=== PATIENT | female | born 1980 | race Caucasian/White ===

== ENCOUNTER 2017-07-23 12:35 | Emergency (ER) | payer OTHER ==
[~2017-07-23] VITALS: Ht 152.4 cm; Wt 56.7 kg
[~2017-07-23 12:35] MED LIST: ALBU90OI INH; AMOX500 PO; ASCO1ER; AZIT500 PO; BCP; BENADRYL25 MG PO; BISA5EC PO; Bactrim Ds Tab1 EACH PO; CEPH500 PO; CLIN300 PO; Citrate Of Mag300 ML PO; DIPH50 PO; DOXY100; FAMO20 PO; HYDACE5 PO; HYDHOMSY PO; HYDR1TAB94 PO; Hair, Skin & N1 EACH PO; IBUP200; Kristalose20 GM PO; LAVAP17G; LORA10 PO; METR500 PO; MULVITMINE; MULVITMINE PO; MUPI2TC TOP; NEOPOLHYD OP; Naprosyn500 MG PO; Norco 5-325 Ta1 EACH PO; OMEP40CA12 PO; PENVK500 PO; PHENA200 PO; PSYL5.85P; Prednisone20 MG PO; Pyridium200 MG PO; RXHYDACE PO; RXPENVK250 PO; RXTRAM50 PO; SERT25; SULTRIDS PO; TRAACE PO; TRAM50 PO; TRIA80TC TOP; Valium5 MG PO; [UNRECOGNIZED DRUG - OTHER] PO
[2017-07-23] MEDS ORDERED: BCP (12:41)
[2017-07-23] MEDS ORDERED: Ultram50 MG PO (13:41)
[2017-07-23] MEDS ORDERED: Veetids 500500 MG PO (13:41)
== END 2017-07-23 13:45 | disposition home or self-care (01) ==
LOC: ER 12:35
DX: K08.89 Other specified disorders of teeth and supporting structures (principal); Z88.5 Allergy status to narcotic agent; Z88.8 Allergy status to other drugs, medicaments and biological substances; Z87.891 Personal history of nicotine dependence
CPT/HCPCS: 99283

== ENCOUNTER 2018-03-01 16:51 | Emergency (ER) | payer OTHER ==
[~2018-03-01] VITALS: Ht 152.4 cm; Wt 61.2 kg
[~2018-03-01 16:51] MED LIST changes: +Ultram50 MG PO; +Veetids 500500 MG PO
[2018-03-01] MEDS ORDERED: Naprosyn500 MG PO (17:24)
[2018-03-01] MEDS ORDERED: CYCL10 PO (17:24)
== END 2018-03-01 17:34 | disposition home or self-care (01) ==
LOC: ER 16:51
DX: S16.1XXA Strain of muscle, fascia and tendon at neck level, initial encounter (principal); F17.200 Nicotine dependence, unspecified, uncomplicated; Z88.8 Allergy status to other drugs, medicaments and biological substances; Z88.5 Allergy status to narcotic agent; X58.XXXA Exposure to other specified factors, initial encounter
CPT/HCPCS: 96372; 99282; J1885

== ENCOUNTER 2020-09-25 11:47 | Emergency (ER) | payer OTHER ==
[~2020-09-25] VITALS: Ht 165.1 cm; Wt 63.5 kg
[~2020-09-25 11:47] MED LIST changes: +CYCL10 PO
[2020-09-25 12:17] LABS: BASOPHILS ABSOLUTE AUTO 0.03 K/mm3 (0.00-0.23); BASOPHILS PERCENT AUTO 0 % (0-2); EOSINOPHILS ABSOLUTE AUTO 0.03 K/mm3 (0.00-0.68); EOSINOPHILS PERCENT AUTO 0 % (0-6); Hematocrit 43.7 % (33.0-51.0); Hemoglobin 14.5 g/dL (11.5-16.0); IMMATURE GRAN ABSOLUTE AUTO 0.02 K/mm3 (0.00-0.10); IMMATURE GRAN PERCENT AUTO 0 % (0-1); LYMPHOCYTES ABSOLUTE AUTO 0.83 K/mm3 (0.84-5.20); LYMPHOCYTES PERCENT AUTO 10 % (21-46); MONOCYTES PERCENT AUTO 5 % (4-13); Mean Corpuscular HGB 29.4 pg (26.0-34.0); Mean Corpuscular HGB Conc 33.2 g/dL (31.5-36.5); Mean Corpuscular Volume 89 fL (80-100); Mean Platelet Volume 11.3 fL (9.1-12.4); NEUTROPHILS ABSOLUTE AUTO 7.34 K/mm3 (1.96-9.15); NEUTROPHILS PERCENT AUTO 85 % (41-73); Platelet Count 206 K/mm3 (150-400); RDW Coefficient Variation 12.2 % (11.7-14.2); RDW Standard Deviation 39.7 fL (35.1-46.3); Red Blood Cell Count 4.93 M/mm3 (3.80-5.20); White Blood Cell Count 8.65 K/mm3 (4.00-11.30)
[2020-09-25 12:39] LABS: Alanine Aminotransfer (ALT/SGP 26 U/L (12-78); Albumin, Blood 3.8 g/dL (3.4-5.0); Albumin/Globulin Ratio 1.1 (0.8-1.8); Alk Phos 101 U/L (50-136); Anion Gap 6 mmol/L (6-16); Aspartate Aminotrans (AST/SGOT 17 U/L (12-37); Bilirubin, Total 0.3 mg/dL (0.1-1.0); Blood Urea Nitrogen 12 mg/dL (8-24); Bun/Creatinine Ratio 14.7 (12.0-20.0); CO2, Blood 26 mmol/L (21-32); Calcium, Blood 8.7 mg/dL (8.5-10.1); Chloride, Blood 110 mmol/L (98-108); Creatinine, Blood 0.81 mg/dL (0.40-1.00); Globulin, Blood 3.5 g/dL (2.2-4.0); Glomerular Filtration Rate >60 (60-); Glucose, Blood 105 mg/dL (70-99); Potassium, Blood 4.1 mmol/L (3.5-5.5); Sodium, Blood 142 mmol/L (136-145); Total Protein, Blood 7.3 g/dL (6.4-8.2)
[2020-09-25] MEDS ORDERED: CYMBALTA60 M1 PO (14:21)
[2020-09-25] MEDS ORDERED: BUPROPION XL150 M1 PO (14:22)
[2020-09-25] MEDS ORDERED: HYDPAM25 PO (14:22)
[2020-09-25] MEDS ORDERED: ONDA4ODT MM (15:48)
[2021-01-05] MEDS ORDERED: Norco 5-325 Ta1 EACH PO (10:53)
== END 2020-09-25 16:31 | disposition home or self-care (01) ==
LOC: ER 11:47
PROVIDERS: Emergency Medicine
DX: R11.2 Nausea with vomiting, unspecified (principal); K21.9 Gastro-esophageal reflux disease without esophagitis; Z87.891 Personal history of nicotine dependence
CPT/HCPCS: 36415; 80053; 83690; 85025; 96374; 96376; 99283-25; J2405; J7030

== ENCOUNTER 2021-01-03 20:09 | Emergency (ER) | payer OTHER ==
[~2021-01-03] VITALS: Ht 165.1 cm; Wt 81.7 kg
[~2021-01-03 20:09] MED LIST changes: +BUPROPION XL150 M1 PO; +CYMBALTA60 M1 PO; +HYDPAM25 PO; +ONDA4ODT MM
[2021-01-03] MEDS ORDERED: Norco 5-325 Ta1 EACH PO (22:42)
[2021-01-05] MEDS ORDERED: Norco 5-325 Ta1 EACH PO (10:53)
== END 2021-01-03 22:57 | disposition home or self-care (01) ==
LOC: ER 20:09
DX: S06.9X9A Unspecified intracranial injury with loss of consciousness of unspecified duration, initial encounter (principal); S16.1XXA Strain of muscle, fascia and tendon at neck level, initial encounter; K21.9 Gastro-esophageal reflux disease without esophagitis; Z79.899 Other long term (current) drug therapy; Z87.891 Personal history of nicotine dependence
CPT/HCPCS: 70450; 72125; 99283-25; A9270

== ENCOUNTER 2021-01-17 15:00 | Emergency (ER) | payer OTHER ==
[~2021-01-17] VITALS: Ht 152.4 cm; Wt 72.6 kg
[2021-01-17] MEDS ORDERED: HYDR1TAB94 PO (16:48)
[2021-01-17] MEDS ORDERED: PROC25S PR (16:48)
[2021-01-17] MEDS ORDERED: MECL25 PO (16:48)
== END 2021-01-17 16:56 | disposition home or self-care (01) ==
LOC: ER 15:00
DX: S06.0X9A Concussion with loss of consciousness of unspecified duration, initial encounter (principal); K21.9 Gastro-esophageal reflux disease without esophagitis; Z88.6 Allergy status to analgesic agent; Z88.5 Allergy status to narcotic agent; Z79.899 Other long term (current) drug therapy; Z87.891 Personal history of nicotine dependence; W20.8XXA Other cause of strike by thrown, projected or falling object, initial encounter
CPT/HCPCS: 70450; 99283-25

== ENCOUNTER → 2022-05-12 | Outpatient (CLI) | payer OTHER ==
[~2022-05-12] MED LIST changes: +MECL25 PO; +PROC25S PR
== END | disposition home or self-care (01) ==
LOC: LAB SHORT 13:36 → LAB 13:36
DX: R30.0 Dysuria (principal)
CPT/HCPCS: 87086

== ENCOUNTER → 2022-05-28 | Outpatient (CLI) | payer OTHER | END | disposition home or self-care (01) | LOC: LAB SHORT 14:33 → LAB 14:33 | DX: Z34.90 Encounter for supervision of normal pregnancy, unspecified, unspecified trimester (principal) | CPT/HCPCS: 84702 ==

== ENCOUNTER 2023-01-17 05:36 | Inpatient (IN) | payer OTHER ==
[2023-01-17] VITALS (19 sets, daily range): BP systolic 82–129; BP diastolic 51–75
[~2023-01-17] VITALS: Ht 154.9 cm; Wt 97.7 kg
[2023-01-17 06:11] LABS: BASOPHILS ABSOLUTE AUTO 0.02 K/mm3 (0.00-0.23); BASOPHILS PERCENT AUTO 0 % (0-2); EOSINOPHILS ABSOLUTE AUTO 0.04 K/mm3 (0.00-0.68); EOSINOPHILS PERCENT AUTO 1 % (0-6); Hematocrit 31.8 % (33.0-51.0); Hemoglobin 10.4 g/dL (11.5-16.0); IMMATURE GRAN ABSOLUTE AUTO 0.03 K/mm3 (0.00-0.10); IMMATURE GRAN PERCENT AUTO 0 % (0-1); LYMPHOCYTES ABSOLUTE AUTO 1.02 K/mm3 (0.84-5.20); LYMPHOCYTES PERCENT AUTO 15 % (21-46); MONOCYTES ABSOLUTE AUTO 0.46 K/mm3 (0.16-1.47); MONOCYTES PERCENT AUTO 7 % (4-13); Mean Corpuscular HGB 27.3 pg (26.0-34.0); Mean Corpuscular HGB Conc 32.7 g/dL (31.5-36.5); Mean Corpuscular Volume 84 fL (80-100); NEUTROPHILS PERCENT AUTO 78 % (41-73); Platelet Count 139 K/mm3 (150-400); RDW Coefficient Variation 13.9 % (11.7-14.2); Red Blood Cell Count 3.81 M/mm3 (3.80-5.20); White Blood Cell Count 6.97 K/mm3 (4.00-11.30)
[2023-01-17 06:21] LABS: Mean Platelet Volume 13.7 fL (9.1-12.4)
[2023-01-17] MEDS ORDERED: PRENATAL TABLE1 EAC2 PO (06:30)
[2023-01-17] MEDS ORDERED: FAMO20 PO (06:31)
--- NOTE | 2023-01-17 08:45 | NUR ---
01/17/23 0845 MAYCOL MINAYA VIABLE BABY GIRL BORN VIA SECTION AT 0834. 'S 9.
[2023-01-17 08:48] LABS: PCO2 Cord - Arterial 61.2 mmHg (40-50); PO2 Cord - Arterial 15.4 mmHg (16-20); pH Cord - Arterial 7.25 (7.28-7.35)
[2023-01-17 08:50] LABS: PCO2 Cord - Venous 54.7 mmHg (40-50); PO2 Cord - Venous 19.4 mmHg (28-32)
[2023-01-18] VITALS (15 sets, daily range): BP systolic 93–120; BP diastolic 51–67
[2023-01-18 05:59] LABS: BASOPHILS ABSOLUTE AUTO 0.02 K/mm3 (0.00-0.23); BASOPHILS PERCENT AUTO 0 % (0-2); EOSINOPHILS ABSOLUTE AUTO 0.01 K/mm3 (0.00-0.68); EOSINOPHILS PERCENT AUTO 0 % (0-6); Hematocrit 26.7 % (33.0-51.0); Hemoglobin 8.8 g/dL (11.5-16.0); IMMATURE GRAN ABSOLUTE AUTO 0.03 K/mm3 (0.00-0.10); IMMATURE GRAN PERCENT AUTO 0 % (0-1); LYMPHOCYTES ABSOLUTE AUTO 1.08 K/mm3 (0.84-5.20); LYMPHOCYTES PERCENT AUTO 9 % (21-46); MONOCYTES ABSOLUTE AUTO 0.82 K/mm3 (0.16-1.47); MONOCYTES PERCENT AUTO 7 % (4-13); Mean Corpuscular HGB 27.5 pg (26.0-34.0); Mean Corpuscular Volume 83 fL (80-100); NEUTROPHILS ABSOLUTE AUTO 9.93 K/mm3 (1.96-9.15); NEUTROPHILS PERCENT AUTO 83 % (41-73); Platelet Count 104 K/mm3 (150-400); RDW Coefficient Variation 13.7 % (11.7-14.2); RDW Standard Deviation 40.9 fL (35.1-46.3); White Blood Cell Count 11.89 K/mm3 (4.00-11.30)
--- NOTE | 2023-01-18 12:57 | NUR ---
PT C/O SEVERE RUQ PAIN. DR. ZUNIGA CAME IN AND ASSESSED PT AND HER PAIN. DR. ZUNIGA ORDERED TORODOL AND DILAUDID. I PLACED ANOTHER IV IN HER LT AC BECAUSE HER OTHER ONE BLEW. ADVISED PT TO GO FOR A WALK AND USE IV TORODOL. PT ADVISED TO LET NURSE KNOW IF PAIN DOES NOT IMPROVE. WILL CONTINUE TO MONITOR.
--- NOTE | 2023-01-18 13:00 | NUR ---
PT HAVING 9/10 RUQ PAIN. MEDICATED PER EMAR. WONDERLY TOLD AND WENT TO PT'S ROOM TO EVALUATE HER. ORDERED TORODOL AND DILAUDID WITH LABS WELL. WILL CONTINUE TO EVALUATE
[2023-01-18 13:25] LABS: Platelet Count 132 K/mm3 (150-400)
[2023-01-18 13:30] LABS: Mean Platelet Volume 13.7 fL (9.1-12.4)
[2023-01-18 14:05] LABS: Amylase, Blood 45 U/L (25-115)
[2023-01-18 14:07] LABS: Alanine Aminotransfer (ALT/SGP 27 U/L (12-78); Albumin, Blood 2.3 g/dL (3.4-5.0); Albumin/Globulin Ratio 0.7 (0.8-1.8); Alk Phos 149 U/L (50-136); Anion Gap 7 mmol/L (6-16); Aspartate Aminotrans (AST/SGOT 39 U/L (12-37); Bilirubin, Total <0.1 mg/dL (0.1-1.0); Blood Urea Nitrogen 12 mg/dL (8-24); CO2, Blood 23 mmol/L (21-32); Chloride, Blood 109 mmol/L (98-108); Globulin, Blood 3.4 g/dL (2.2-4.0); Glomerular Filtration Rate 95 (60-); Glucose, Blood 95 mg/dL (70-99); Sodium, Blood 139 mmol/L (136-145); Total Protein, Blood 5.7 g/dL (6.4-8.2)
--- NOTE | 2023-01-18 18:06 | NUR ---
PT STILL HAVING SEVERE RUQ PAIN. DR. ZUNIGA CALLED AND ADVISED PT WAS HAVING SEVERE PAIN. CONTACTED AND ORDERED AT CT ABDO/ PELVIS WITH CONTRAST.
--- NOTE | 2023-01-18 18:30 | NUR ---
PT OFF TO CT NOW. MEDICATED PER EMAR BEFORE SHE LEFT FOR SCAN
--- NOTE | 2023-01-18 21:22 | NUR ---
DR ZUNIGA INTO PTS ROOM TO DISCUSS CT FINDINGS WITH PT AND FOB. CT SHOWED NOTHING ACUTE GOING ON, JUST SOME MILD GAS. POC TO INCREASE AMBULATION AND PT TO TAKE A WALK BEFORE BED
--- NOTE | 2023-01-18 22:34 | NUR ---
Pt sitting in bed, No requests at this time.
--- NOTE | 2023-01-19 02:52 | NUR ---
RN DISCUSSED WITH PT ABOUT THE DISCUSSION THIS RN HAD WITH DR ZUNIGA REGARDING BREAK THROUGH PAIN MEDICATION. NEW ORDERS WERE GIVEN TO INCREASE PERCOCET TO 7.5MG, TAKE A BOWEL STIMULANT AND A MINAYA FLUSH PRN AND FOR PT TO AMBULATE THE EAST WAY. PT RECEPTIVE TO THIS, PT DECLINED THE FLUSH RIGHT NOW BUT MAY BE UP FOR IT IN THE AM. PT GOOD WITH TAKING MILK OF MAG AND AMBULATING IN THE EAST WAY
[2023-01-19 04:12] VITALS: BP 100/55
[2023-01-19 05:53] LABS: Hematocrit 27.8 % (33.0-51.0); Hemoglobin 9.1 g/dL (11.5-16.0); Mean Corpuscular HGB 27.5 pg (26.0-34.0); Mean Corpuscular HGB Conc 32.7 g/dL (31.5-36.5); Mean Corpuscular Volume 84 fL (80-100); Platelet Count 122 K/mm3 (150-400); RDW Coefficient Variation 14.1 % (11.7-14.2); RDW Standard Deviation 43.2 fL (35.1-46.3); Red Blood Cell Count 3.31 M/mm3 (3.80-5.20)
[2023-01-19 07:34] VITALS: BP 91/55
--- NOTE | 2023-01-19 07:51 | NUR ---
pt is doing well this morning, talked about getting paper work done for going home today, pt reports dr wonderly wanted to keep her until tomorrow, but the pt reported she would like to go home today. encouraged pt to ambulate in usllivan, pt dressing was still on, removed dressing, incision c/d/i, pt reports passing gas. pt encoruaged to call if needs anything
--- NOTE | 2023-01-19 07:58 | NUR ---
pt verblizes [facility] a no smoking campus and that there is no smoking in the rooms: no cig, no vap, no thcsmoking, pt and fob verbalized understanding
[2023-01-19 11:43] VITALS: BP 115/64
[2023-01-19] MEDS ORDERED: IBUP800 PO ×2 (12:43→16:07)
[2023-01-19] MEDS ORDERED: Percocet 5-3251 EACH PO (16:06)
[2023-01-19] MEDS ORDERED: CYCL10 PO (16:08)
--- NOTE | 2023-01-19 16:49 | NUR ---
READY TO DC HOME, GETTING SCRIPTS FILLED, TO LET RN KNOW WHEN READY, DC INSTRUCTIONS GONE OVER WITH PT AND SO DECLINES ANY QUESTIONS, PT WAS FALLING ASLEEP THRU THE DC INSTRUCTIONS
[2023-01-19 18:03] VITALS: BP 141/75
== END 2023-01-19 18:15 | disposition home or self-care (01) | DRG 787 ==
LOC: BC 05:36 → PRE IP 08:00 → BC 23:26
PROVIDERS: Advanced Practice Midwife; ADMIT Obstetrics & Gynecology
PROC: 4A033R1 Measurement of Arterial Saturation, Peripheral, Percutaneous Approach (ICD-10-PCS; 2023-01-17)
PROC: 30233N1 Transfusion of Nonautologous Red Blood Cells into Peripheral Vein, Percutaneous Approach (ICD-10-PCS; 2023-01-17)
PROC: 10D00Z1 Extraction of Products of Conception, Low, Open Approach (ICD-10-PCS; principal; 2023-01-17 08:00)
DX: O34.211 Maternal care for low transverse scar from previous cesarean delivery (principal); O99.12 Other diseases of the blood and blood-forming organs and certain disorders involving the immune mechanism complicating childbirth; O99.354 Diseases of the nervous system complicating childbirth; Z67.40 Type O blood, Rh positive; G43.909 Migraine, unspecified, not intractable, without status migrainosus; O90.81 Anemia of the puerperium; O09.513 Supervision of elderly primigravida, third trimester; Z90.49 Acquired absence of other specified parts of digestive tract; Z98.818 Other dental procedure status; Z88.6 Allergy status to analgesic agent; Z91.048 Other nonmedicinal substance allergy status; Z79.899 Other long term (current) drug therapy; Z88.5 Allergy status to narcotic agent; Z37.0 Single live birth; Z3A.39 39 weeks gestation of pregnancy
CPT/HCPCS: 36415; 74177; 80053; 82150; 82803; 83690; 85025; 85027; 85049; 86850; 86900; 86901; 86923; A9270; J0690; J1100; J1170; J1885; J2371; J2405; J2590; J2765; J3010; J7120; Q9967

== ENCOUNTER → 2024-06-04 | Outpatient (CLI) | payer OTHER ==
[~2024-06-04] MED LIST changes: +IBUP800 PO; +PRENATAL TABLE1 EAC2 PO; +Percocet 5-3251 EACH PO
[2024-06-04 15:31] LABS: Bacterial Vaginosis PCR Negative (NEGATIVE); Candida Group, PCR NOT DETECTED (NOT DETECT); Candida glabrata-krusei, PCR NOT DETECTED (NOT DETECT)
== END ==
LOC: LAB 13:08 → LAB SHORT 13:08
PROVIDERS: Physician Assistant Surgical
DX: N89.8 Other specified noninflammatory disorders of vagina (principal)
CPT/HCPCS: 87481; 87661; 87801

== ENCOUNTER 2024-11-18 15:36 | Emergency (ER) | payer OTHER ==
[~2024-11-18] VITALS: Ht 152.4 cm; Wt 77.1 kg
[2024-11-18 15:46] VITALS: BP 150/100
[2024-11-18] MEDS ORDERED: Lidocaine 2% Viscous Soln 15 ML UDC PO ONE (15:55)
[2024-11-18] MEDS ORDERED: Mag Hydrox/AL Hydrox/Simeth 30 ML UDC PO ONE (15:55)
[2024-11-18 16:33] LABS: BASOPHILS ABSOLUTE AUTO 0.03 K/mm3 (0.00-0.23); BASOPHILS PERCENT AUTO 0 % (0-2); EOSINOPHILS ABSOLUTE AUTO 0.06 K/mm3 (0.00-0.68); EOSINOPHILS PERCENT AUTO 1 % (0-6); Hematocrit 44.6 % (33.0-51.0); Hemoglobin 15.4 g/dL (11.5-16.0); IMMATURE GRAN ABSOLUTE AUTO 0.04 K/mm3 (0.00-0.10); IMMATURE GRAN PERCENT AUTO 0 % (0-1); LYMPHOCYTES ABSOLUTE AUTO 0.86 K/mm3 (0.84-5.20); LYMPHOCYTES PERCENT AUTO 8 % (21-46); MONOCYTES PERCENT AUTO 5 % (4-13); Mean Corpuscular HGB 29.4 pg (26.0-34.0); Mean Corpuscular HGB Conc 34.5 g/dL (31.5-36.5); Mean Corpuscular Volume 85 fL (80-100); Mean Platelet Volume 11.2 fL (9.1-12.4); NEUTROPHILS ABSOLUTE AUTO 9.59 K/mm3 (1.96-9.15); NEUTROPHILS PERCENT AUTO 86 % (41-73); Platelet Count 213 K/mm3 (150-400); RDW Coefficient Variation 11.8 % (11.7-14.2); RDW Standard Deviation 36.1 fL (35.1-46.3); Red Blood Cell Count 5.24 M/mm3 (3.80-5.20); White Blood Cell Count 11.18 K/mm3 (4.00-11.30)
[2024-11-18 17:04] LABS: Albumin/Globulin Ratio 1.2 (0.8-1.8); Bilirubin, Total 0.5 mg/dL (0.1-1.0); Bun/Creatinine Ratio 21.5 (12.0-20.0); Calcium, Blood 9.1 mg/dL (8.5-10.1); Creatinine, Blood 0.56 mg/dL (0.40-1.00); Globulin, Blood 3.3 g/dL (2.2-4.0); Potassium, Blood 3.7 mmol/L (3.5-5.5); Total Protein, Blood 7.3 g/dL (6.4-8.2)
[2024-11-18] MEDS ORDERED: Pepcid40 MG PO (18:27)
[2024-11-18] MEDS ORDERED: Famotidine 20 MG Tab PO ONE (18:30)
== END 2024-11-18 18:45 | disposition home or self-care (01) ==
LOC: ER 15:36
PROVIDERS: Emergency Medicine
DX: R10.13 Epigastric pain (principal); Z88.5 Allergy status to narcotic agent; Z88.8 Allergy status to other drugs, medicaments and biological substances; Z91.09 Other allergy status, other than to drugs and biological substances; Z79.899 Other long term (current) drug therapy; Z87.891 Personal history of nicotine dependence
CPT/HCPCS: 80053; 83690; 84703; 85025; 93005; 93010; 99284-25; A9270